=== PATIENT | female | born 1960 | race Caucasian/White ===

== ENCOUNTER 2023-05-10 19:24 | Emergency (ER) | payer OTHER, SELFPAY ==
[2023-05-10] VITALS (13 sets, daily range): BP systolic 146–213; BP diastolic 72–102; PULSE 62–90; RESP 12–22; TEMP 36.9; O2SAT 93–98; BMI 49.4
--- NOTE | 2023-05-10 19:27 | DI.RAD.S_ITS ---
PROCEDURE: XR CHEST 1V INDICATIONS: chest pain TECHNIQUE: One view of the chest was acquired. COMPARISON: None. FINDINGS: Surgical changes and devices: None. Lungs and pleura: Lungs are clear. No pleural effusions or pneumothorax. Mediastinum: Mediastinal contours appear normal. Heart size is enlarged. Bones and chest wall: No suspicious bony lesions. Overlying soft tissues appear unremarkable. IMPRESSION: No acute cardiopulmonary abnormality is seen. Dictated by: Ron Leung M.D. on 05/10/2023 at 19:57 Approved by: Ron Leung M.D. on 05/10/2023 at 19:58
[2023-05-10 19:46] LABS: Add Manual Diff / Slide Review NO; Basophils Absolute Auto 0 /uL (0-100); Basophils Percent Auto 0.5 % (0-2); Eosinophils Absolute Auto 200 /uL (0-450); Eosinophils Percent Auto 3.1 % (2-4); Hematocrit 39.3 % (36-46); Hemoglobin 13.3 g/dL (12.0-16.0); Lymphocytes Absolute Auto 1900 /uL (1100-4500); Lymphocytes Percent Auto 33.2 % (25-40); Mean Corpuscular Hemoglobin 30.7 PG (26-34); Mean Corpuscular Volume 90.5 fL (80-100); Monocytes Absolute Auto 500 /uL (0-900); Monocytes Percent Auto 8.8 % (3-14); Neutrophils Absolute Auto 3100 /uL (1500-7000); Neutrophils Percent Auto 54.4 % (50-75); Platelet Count 289 X10^3/uL (150-400); Red Blood Cell Count 4.34 X10^6/uL (4.0-5.2); Red Cell Distribution Width 14.4 % (11.6-14.8); White Blood Cell Count 5.8 X10^3/uL (4.5-11.0)
[2023-05-10 19:58] LABS: Alanine Aminotransferase 27 IU/L (<35); Albumin 4.2 g/dL (3.5-5.0); Alkaline Phosphatase 109 U/L (38-126); Aspartate Aminotransferase 31 IU/L (14-36); BUN Creatinine Ratio 22.1 (6-22); Bilirubin Total 0.7 mg/dL (0.2-1.3); Blood Urea Nitrogen 15 mg/dL (7-17); Calcium 9.7 mg/dL (8.4-10.2); Carbon Dioxide 26 mmol/L (22-32); Chloride 108 mmol/L (98-107); Creatine Kinase 53 U/L (30-135); Estimated Glomerular Filt Rate > 60 mL/min (>60); Globulin 4.4 g/dL (1.7-4.1); Glucose 116 mg/dL (80-110); HEMOLYSIS < 15 (0-50); Lipase 108 U/L (23-300); Potassium 3.8 mmol/L (3.4-5.1); Sodium 141 mmol/L (137-145); Total Protein 8.6 g/dL (6.3-8.2)
--- NOTE | 2023-05-10 20:04 | ED_ITS ---
HPI - Chest Pain General Chief Complaint: Chest Pain Stated Complaint: chest pain Time Seen by Provider: 05/10/23 19:26 Source: patient Mode of arrival: Ambulatory Limitations: no limitations History of Present Illness HPI narrative: 63-year-old female. Has had lap band abdominal surgery who is here for evaluation no was initially described as chest discomfort but upon my evaluation is more upper abdominal pain. She states that it was fairly sudden onset approximately 2 hours prior to arrival here in the ER. Initially she told triage that was chest discomfort but she said it was both upper abdominal pain to myself. Some nausea but no vomiting. Is worse with palpation. Not associated with eating. No change in urine or bowel habits. No skin changes. Has not tried anything for the symptoms prior to arrival. She states that it does radiate to her left shoulder. Related Data Allergies Allergy/AdvReac Type Severity Reaction Status Date / Time No Known Drug Allergies Allergy Verified 05/10/23 23:07 Review of Systems Constitutional Constitutional: Reports system reviewed and no additional complaints, except as documented Cardiovascular Cardiovascular: Reports system reviewed and no additional complaints, except as documented Respiratory Respiratory: Reports system reviewed and no additional complaints, except as documented Gastrointestinal Gastrointestinal: Reports system reviewed and no additional complaints, except as documented Integumentary/Breasts Skin/Breast: Reports system reviewed and no additional complaints, except as documented Exam Initial Vital Signs Initial Vital Signs: Vital Signs Pulse Rate 80 05/10/23 19:33 Respiratory Rate 19 05/10/23 19:33 Pulse Oximetry 97 05/10/23 19:33 Const General: cooperative, comfortable and No ill appearing HENMT Head: normal to inspection and normocephalic Resp Effort & Inspection: normal respiratory effort Auscultation: clear to auscultation bilaterally Cardio Rate: regular rate Rhythm: regular rhythm GI Inspection: normal to inspection and non-distended Palpation: soft, No firm, No guarding and tender (Upper abdomen) Back/Spine/Pelvis Back: No CVA tenderness Skin General: no rashes or lesions noted Neuro General: patient alert, patient awake and moves all extremities Extrem General: normal to inspection and capillary refill normal Course Orders Ordered: ED Orders 05/10/23 19:27 XR chest 1V Stat EKG-12 Lead Stat 05/10/23 19:38 Complete Blood Count AUTO DIFF Stat Comprehensive Metabolic Panel Stat Lipase Stat Troponin & CK Cardiac Panel Stat 05/10/23 20:25 CT abdomen pelvis w con Stat 05/10/23 21:19 US abdomen limited Stat Discontinued Medications Ketorolac Tromethamine (Ketorolac 30 Mg/Ml Vial) 30 mg IV NOW ONE Stop: 05/10/23 20:26 Last Admin: 05/10/23 20:34 Dose: 30 mg Documented By: DALLAS Morphine Sulfate (Morphine 4 Mg/Ml Inj) 4 mg IV NOW ONE Stop: 05/10/23 21:54 Last Admin: 05/10/23 21:59 Dose: 4 mg Documented By: DALLAS Ondansetron HCl (Ondansetron 4 Mg/2 Ml Inj) 4 mg IV NOW ONE Stop: 05/10/23 20:26 Last Admin: 05/10/23 20:35 Dose: 4 mg Documented By: DALLAS Ondansetron HCl (Ondansetron 4 Mg Odt Prepack) 1 bottle MISC DIRECTED ONE Stop: 05/10/23 23:04 Last Admin: 05/10/23 23:12 Dose: 1 bottle Documented By: DALLAS Tramadol HCl (Tramadol 50 Mg Prepack) 1 bottle MISC DIRECTED ONE Stop: 05/10/23 23:04 Last Admin: 05/10/23 23:13 Dose: 1 bottle Documented By: DALLAS Vital Signs Vital signs: Vital Signs - 8 hr 05/10/23 19:33 05/10/23 19:34 05/10/23 19:41 Temperature 98.4 F Pulse Rate 80 90 Respiratory Rate 19 20 Blood Pressure 213/102 H 200/88 H Pulse Oximetry 97 97 Oxygen Delivery Method Room Air 05/10/23 19:41 05/10/23 20:00 05/10/23 20:12 Temperature Pulse Rate 70 68 66 Respiratory Rate 16 20 16 Blood Pressure Pulse Oximetry 98 98 98 Oxygen Delivery Method 05/10/23 20:13 05/10/23 20:13 05/10/23 20:30 Temperature Pulse Rate 69 Respiratory Rate 22 Blood Pressure 174/98 H 146/81 H Pulse Oximetry 97 Oxygen Delivery Method 05/10/23 20:30 05/10/23 20:59 05/10/23 20:59 Temperature Pulse Rate 69 62 Respiratory Rate 22 22 Blood Pressure 187/85 H Pulse Oximetry 98 98 Oxygen Delivery Method 05/10/23 21:00 05/10/23 21:00 05/10/23 22:01 Temperature Pulse Rate 63 71 Respiratory Rate 16 Blood Pressure 178/84 H Pulse Oximetry 96 97 Oxygen Delivery Method 05/10/23 22:30 05/10/23 23:00 05/10/23 23:16 Temperature Pulse Rate 63 63 Respiratory Rate 12 19 Blood Pressure 149/72 H Pulse Oximetry 93 95 Oxygen Delivery Method MDM - Chest Pain Lab Data Attestation: I reviewed the patient's lab results. 05/10/23 19:38 05/10/23 19:38 Labs: Lab Results 05/10/23 Range/Units 19:38 WBC 5.8 (4.5-11.0) X10^3/uL RBC 4.34 (4.0-5.2) X10^6/uL Hgb 13.3 (12.0-16.0) g/dL Hct 39.3 (36-46) % MCV 90.5 (80-100) fL MCH 30.7 (26-34) PG MCHC 34.0 (30-36) % RDW 14.4 (11.6-14.8) % Plt Count 289 (150-400) X10^3/uL Neut % (Auto) 54.4 (50-75) % Lymph % (Auto) 33.2 (25-40) % Andrew % (Auto) 8.8 (3-14) % Eos % (Auto) 3.1 (2-4) % Baso % (Auto) 0.5 (0-2) % Neut # (Auto) 3100 (1849-7151) /uL Lymph # (Auto) 1900 (6516-0800) /uL Andrew # (Auto) 500 (0-900) /uL Eos # (Auto) 200 (0-450) /uL Baso # (Auto) 0 (0-100) /uL Sodium 141 (137-145) mmol/L Potassium 3.8 (3.4-5.1) mmol/L Chloride 108 H (98-107) mmol/L Carbon Dioxide 26 (22-32) mmol/L BUN 15 (7-17) mg/dL Creatinine 0.68 (0.52-1.04) mg/dL Estimated GFR > 60 (>60) mL/min BUN/Creatinine Ratio 22.1 H (6-22) Glucose 116 H (80-110) mg/dL Calcium 9.7 (8.4-10.2) mg/dL Total Bilirubin 0.7 (0.2-1.3) mg/dL AST 31 (14-36) IU/L ALT 27 (<35) IU/L Alkaline Phosphatase 109 (38-126) U/L Total Creatine Kinase 53 (30-135) U/L Troponin I < 0.012 (0.01-0.034) ng/mL Total Protein 8.6 H (6.3-8.2) g/dL Albumin 4.2 (3.5-5.0) g/dL Globulin 4.4 H (1.7-4.1) g/dL Albumin/Globulin Ratio 1.0 (1.0-2.8) Lipase 108 (23-300) U/L Imaging Data Chest x-ray: Radiologist's Impression: PROCEDURE: XR CHEST 1V INDICATIONS: chest pain TECHNIQUE: One view of the chest was acquired. COMPARISON: None. FINDINGS: Surgical changes and devices: None. Lungs and pleura: Lungs are clear. No pleural effusions or pneumothorax. Mediastinum: Mediastinal contours appear normal. Heart size is enlarged. Bones and chest wall: No suspicious bony lesions. Overlying soft tissues appear unremarkable. IMPRESSION: No acute cardiopulmonary abnormality is seen. CT scan - abdomen/pelvis: Radiologist's Impression: PROCEDURE: CT ABDOMEN PELVIS W CON INDICATIONS: L sided abd pain TECHNIQUE: After the administration of intravenous contrast, axial sections acquired from the lung bases to the pubic symphysis. Coronal and sagittal reformats were performed. For radiation dose reduction, the following was used: automated exposure control, adjustment of mA and/or kV according to patient size. COMPARISON: None. FINDINGS: Image quality: Diagnostic. Lower Chest: Small hiatal hernia. ABDOMEN: Liver: No solid mass. Enlarged. Patent portal vein. Non cirrhotic liver morphology. Gallbladder: No radiopaque gallstones or wall thickening. Trace pericholecystic fluid. Biliary ducts: No biliary dilation. Pancreas: No ductal dilation. Spleen: Size is within normal limits. Adrenal Glands: No adrenal nodules. Kidneys and Ureters: No hydronephrosis. No solid mass. No complex renal cystic lesion which requires follow up. Stomach and Bowel: Normal colonic caliber, without significant wall thickening. Colonic diverticulosis without evidence of diverticulitis. Gastric band with appropriate phi angle. Peritoneum: No abnormal intraperitoneal fluid. No free air. Ventral Wall: Large, wide-mouth ventral hernia containing long segments of nonobstructed small and large bowel. Abdominal Nodes: No retroperitoneal or mesenteric adenopathy by size criteria. Vessels: Aorta and inferior vena cava are normal in size. PELVIS: Pelvic Organs: Left ovarian cyst measuring 5.5 centimeters. Ovarian stroma does not appear thickened and there is no whirling of the ovarian vasculature . Bladder: No bladder wall thickening, accounting for underdistention. Pelvic Nodes: No enlarged lymph nodes. Miscellaneous: No inguinal hernias are seen. Bones: No aggressive osseous abnormality. IMPRESSION: Left ovarian cyst measuring 5.5 centimeters, without CT features of ovarian torsion. Consider pelvic ultrasound in the setting of left lower quadrant pain. Trace pericholecystic fluid, without radiopaque gallstone or wall thickening. If this patient reports right upper quadrant pain, consider gallbladder ultrasound to exclude pathology. US - abdomen: Radiologist's Impression: ROCEDURE: US ABDOMEN LIMITED INDICATIONS: RUQ pain eval for GB pathology TECHNIQUE: Real-time scanning was performed of the abdominal and retroperitoneal organs, with image documentation. COMPARISON: [facility], CT, CT ABDOMEN PELVIS W CON, 05/10/2023, 20:36. FINDINGS: Liver: Increased liver echogenicity with posterior attenuation, most consistent with moderate to severe steatosis. Hepatomegaly. Gallbladder: No gallstones. No wall thickening. No pericholecystic edema. Negative sonographic Fowler's sign. Biliary ducts: Intrahepatic bile ducts are non-dilated. Extrahepatic bile duct caliber measures 4 mm. Normal is 6-7 mm or less in diameter, or 10 mm or less post-cholecystectomy. Pancreas: Visualized portions of the pancreas are sonographically normal. Miscellaneous: No free abdominal fluid. IMPRESSION: No gallbladder pathology. No stones or wall thickening. Moderate to severe hepatic steatosis. ECG Data Interpretation: Sinus rhythm Ventricular rate of 67 Normal axis Normal QRS Normal QTC No ST T wave changes MDM Narrative Medical decision making narrative: Low suspicion for ACS. EKG and chest x-ray unremarkable. Her LFTs and lipase are normal. Abdominal CT scan shows ovarian cyst however she does not have any lower abdominal pain. I do not feel that this is the cause of her discomfort she describes it as upper abdomen. Right upper quadrant ultrasound shows no acute pathology. Lipase does not indicate pancreatitis. Did discuss the possibility of reflux disease or gastric ulcer and how this would not necessarily show up on a CT scan so I did recommend a H2 prasad patient is afebrile. There was no indication for admission to the hospital. No indication for emergent surgical consultation. We did discuss a lack of a definitive diagnosis with the patient. Will discharge home with symptom control for now. Was given strict return precautions. Patient expressed understanding and agreement. Discharge Plan Departure Patient Disposition: Home Clinical Impression: Abdominal pain Instructions: DI for Abdominal Pain-Adult Activity Restrictions/Additional Instructions: I recommend a bland diet for the next several days. Use the nausea medication and pain medication as needed. Contact your primary care doctor for a follow- up. You can also contact the general surgeons at the number provided below for follow-up as well. I also recommend that you consider taking a medicine called famotidine. You can purchase this [id number]. Return to the emergency department for new symptoms. Referrals: David Fonseca MD [Physician] - Stand Alone Forms: Patient Portal/API
[2023-05-10 20:10] LABS: Troponin I < 0.012 ng/mL (0.01-0.034)
--- NOTE | 2023-05-10 20:24 | PC.NURSE ---
Dr. Tee at bedside with pt and pt's family
--- NOTE | 2023-05-10 20:25 | DI.CT.S_ITS ---
PROCEDURE: CT ABDOMEN PELVIS W CON INDICATIONS: L sided abd pain TECHNIQUE: After the administration of intravenous contrast, axial sections acquired from the lung bases to the pubic symphysis. Coronal and sagittal reformats were performed. For radiation dose reduction, the following was used: automated exposure control, adjustment of mA and/or kV according to patient size. COMPARISON: None. FINDINGS: Image quality: Diagnostic. Lower Chest: Small hiatal hernia. ABDOMEN: Liver: No solid mass. Enlarged. Patent portal vein. Non cirrhotic liver morphology. Gallbladder: No radiopaque gallstones or wall thickening. Trace pericholecystic fluid. Biliary ducts: No biliary dilation. Pancreas: No ductal dilation. Spleen: Size is within normal limits. Adrenal Glands: No adrenal nodules. Kidneys and Ureters: No hydronephrosis. No solid mass. No complex renal cystic lesion which requires follow up. Stomach and Bowel: Normal colonic caliber, without significant wall thickening. Colonic diverticulosis without evidence of diverticulitis. Gastric band with appropriate phi angle. Peritoneum: No abnormal intraperitoneal fluid. No free air. Ventral Wall: Large, wide-mouth ventral hernia containing long segments of nonobstructed small and large bowel. Abdominal Nodes: No retroperitoneal or mesenteric adenopathy by size criteria. Vessels: Aorta and inferior vena cava are normal in size. PELVIS: Pelvic Organs: Left ovarian cyst measuring 5.5 centimeters. Ovarian stroma does not appear thickened and there is no whirling of the ovarian vasculature . Bladder: No bladder wall thickening, accounting for underdistention. Pelvic Nodes: No enlarged lymph nodes. Miscellaneous: No inguinal hernias are seen. Bones: No aggressive osseous abnormality. IMPRESSION: Left ovarian cyst measuring 5.5 centimeters, without CT features of ovarian torsion. Consider pelvic ultrasound in the setting of left lower quadrant pain. Trace pericholecystic fluid, without radiopaque gallstone or wall thickening. If this patient reports right upper quadrant pain, consider gallbladder ultrasound to exclude pathology. Dictated by: Ron Leung M.D. on 05/10/2023 at 21:10 Approved by: Ron Leung M.D. on 05/10/2023 at 21:14
[2023-05-10] MEDS: KETOROLAC 30 MG/ML VIAL IV (20:34)
[2023-05-10] MEDS: ONDANSETRON 4 MG/2 ML INJ IV (20:35)
--- NOTE | 2023-05-10 21:19 | DI.US.S_ITS ---
PROCEDURE: US ABDOMEN LIMITED INDICATIONS: RUQ pain eval for GB pathology TECHNIQUE: Real-time scanning was performed of the abdominal and retroperitoneal organs, with image documentation. COMPARISON: [facility], CT, CT ABDOMEN PELVIS W CON, 05/10/2023, 20:36. FINDINGS: Liver: Increased liver echogenicity with posterior attenuation, most consistent with moderate to severe steatosis. Hepatomegaly. Gallbladder: No gallstones. No wall thickening. No pericholecystic edema. Negative sonographic Fowler's sign. Biliary ducts: Intrahepatic bile ducts are non-dilated. Extrahepatic bile duct caliber measures 4 mm. Normal is 6-7 mm or less in diameter, or 10 mm or less post-cholecystectomy. Pancreas: Visualized portions of the pancreas are sonographically normal. Miscellaneous: No free abdominal fluid. IMPRESSION: No gallbladder pathology. No stones or wall thickening. Moderate to severe hepatic steatosis. Dictated by: Ron Leung M.D. on 05/10/2023 at 21:54 Approved by: Ron Leung M.D. on 05/10/2023 at 21:56
[2023-05-10] MEDS: MORPHINE 4 MG/ML INJ IV (21:59)
--- NOTE | 2023-05-10 22:54 | PC.NURSE ---
Dr. montano at bedside
[2023-05-10] MEDS: ONDANSETRON 4 MG ODT PREPACK 1 BOTTLE MISC (23:12)
[2023-05-10] MEDS: TRAMADOL 50 MG PREPACK 1 BOTTLE MISC (23:13)
== END 2023-05-10 23:18 | disposition home or self-care (01) ==
PROVIDERS: Emergency Provider Emergency Medicine
DX: R10.11 Right upper quadrant pain (principal)
CPT/HCPCS: 36415; 71045; 74177; 76705; 80053; 82550; 83690; 84484; 85025; 93005; 96374; 96375; 99284; J1885; J2270; J2405; Q9967